=== PATIENT | male | born 1980 | race Caucasian/White ===

== ENCOUNTER 2016-11-13 12:56 | Emergency (ER) | payer MEDICAID ==
[2016-11-13] MEDS ORDERED: ONDANSETRON HCL 4 MG/2 ML VIAL ONE (13:29)
[2016-11-13 13:42] LABS: BASOPHILS 0.4 % (0.0-2.0); EOSINOPHILS 0.2 % (0.0-6.0); HEMATOCRIT 42.8 % (42.0-54.0); HEMOGLOBIN 15.2 g/dL (14.0-18.0); LYMPHOCYTES 6.1 % (20.0-40.0); LYMPHOCYTES# 0.6 X 10^3uL (0.8-3.8); MEAN CELL VOLUME 91.2 fL (80.0-100.0); MEAN CORPUS. HGB CONCENTRATION 35.5 g/dL (32.0-36.0); MEAN CORPUSCULAR HEMOGLOBIN 32.4 pg (29.0-35.0); MEAN PLATELET VOLUME 8.8 fL (7.4-10.4); MONOCYTES 5.1 % (2.0-10.0); MONOCYTES# 0.5 X 10^3uL (0.2-1.0); NEUTROPHILS 88.2 % (54.0-75.0); NEUTROPHILS# 8.1 X 10^3uL (2.6-6.7); RED BLOOD COUNT 4.69 X 10^6uL (4.20-6.10); RED CELL DISTRIBUTION WIDTH 14.1 % (11.5-14.5); WHITE BLOOD COUNT 9.2 X 10^3uL (3.9-10.7)
[2016-11-13 13:45] LABS: BLOOD UREA NITROGEN 14 mg/dL (9-20); CALCIUM 9.6 mg/dL (8.4-10.2); CHLORIDE 82 mmol/L (98-107); CREATININE 0.8 mg/dL (0.7-1.3); EST GLOMERULAR FILTRATION RATE > 60 mL/min; GLUCOSE 97 mg/dL (70-100); POTASSIUM 3.4 mmol/L (3.5-5.1); SODIUM 126 mmol/L (137-145)
[2016-11-13 13:49] LABS: PLATELET COUNT 79 X 10^3uL (130-440)
--- NOTE | 2016-11-13 15:50 | ER NURSING DOCUMENTATION ---
Nurse's Notes [facility] Name:Estrada Stevenson Age:35 yrs Sex:Male :1980 Arrival Date:11/13/2016 Time:12:56 Bed4 Private MD: Diagnosis:Viral Upper Respiratory Infection (URI);Vomiting - Dehydration Presentation: 11/13 13:00 Presenting complaint: Patient states: pt states he has had N/V cough and congestion all st week. He was seen at [facility] on and Dx with a URI. Influenza was negative at that time. pt presents today because he is unable to keep any thing down. Transition of care: Home. 13:00 Method Of Arrival: Private Vehicle st 13:22 Acuity: CAROL 3 st Triage Assessment: 13:00 General: Appears ill, uncomfortable, Behavior is cooperative. Pain: Denies pain. st Cardiovascular: tachy. Respiratory: Airway is patent Respiratory effort is even, unlabored, Respiratory pattern is regular, symmetrical, deep breathing, smells of ketones. Breath sounds are clear bilaterally. Reports cough that is productive, nasal congestion and constant nasal drip. GI: Abdomen is flat, non- distended Abd is soft and non tender X 4 quads. Reports nausea, vomiting, pt actively vomiting. Historical: - Allergies: No known drug Allergies; - Home Meds: 1. Flonase Nasal 2. Mucinex oral - PMHx: None; - PSHx: None; - Tetanus: unknown. - Ebola Screening: : Patient denies exposure to infectious person. Patient denies travel to an Ebola-affected area in the 21 days before illness onset. . - Immunization history: Flu Vaccine. - Social history: Smoking status: Patient states was never smoker of tobacco. Patient uses alcohol occasionally. uses a vaperiser., marijuana. Screenin:32 Infectious Disease Risk None. Abuse screen: Denies threats or abuse. Denies injuries st from another. pt feels safe at home. Nutritional screening: No deficits noted. Assessment: 13:39 General: nausea is better. st 14:14 General: pt states he is feeling a little better. st 15:43 General: pt tolerated fluids well.. st Vital Signs: 13:05 BP 144 / 90 (auto/); Pulse 105; Resp 24; Temp 98.3; Pulse Ox 95% ; Pain 0/10; st 13:32 Pulse Ox 82% ; st 13:38 BP 129 / 86 (auto/); Pulse 83; st 13:57 Pulse Ox 96% ; st 14:00 BP 133 / 79 (auto/); Pulse 83; Resp 18; st 14:27 Pulse Ox 98% ; st 14:30 BP 128 / 78 (auto/); Pulse 81; st 14:32 Pulse Ox 96% ; st ED Course: 13:00 Patient arrived in ED. we 13:00 Valuables Remains with patient Patient has correct armband on for positive st identification. Bed in low position. Pulse Ox - RN Monitoring Only NIBP On - RN Monitoring Only. 13:22 Fidel Villeda MD is Attending Physician. tl1 13:22 Sarah Mckee RN is Primary Nurse. st 13:[address] 13:24 Inserted peripheral IV: 20 gauge in left and blood collected. st 13:[address] 15:34 Diet: Patient given juice. st 15:37 Cheyanne Guardado MD is Referral Physician. tl1 Administered Medications: 13:25 Drug: Zofran 4 mg; Route: IVP; Infused Over: 2 mins; Site: right antecubital; st 14:33 Follow up: Response: Nausea is decreased st 13:25 Drug: NS 0.9% 1000 ml; Route: IV; Rate: bolus; Site: left antecubital; st 14:33 Follow up: IV Status: Completed infusion; IV Intake: 1000ml st 14:33 Drug: NS 0.9% 1000 ml; Route: IV; Rate: bolus; Site: left antecubital; st 15:35 Follow up: IV Status: Completed infusion; IV Intake: 1000ml st Point of Care Testing: Blood Glucose: 13:28 Blood Glucose: 115 mg/dL; st Ranges: Intake: 14:33 IV: 1000ml; Total: 1000ml. st 15:35 IV: 1000ml; Total: 2000ml. st Outcome: 15:38 Discharge ordered by . tl1 15:48 Discharged to home ambulatory. st 15:48 Condition: improved 15:48 Discharge instructions given to patient, Instructed on discharge instructions, follow up and referral plans. medication usage, Prescriptions given X 1. 15:48 IV D/Skyler 15:48 Patient left the ED. st 04/02 09:41 Discharge F/U Call: Unable to reach: no answer nf 10:15 Discharge F/U Call: Spoke with: other: Name: Delia spoke with patient by phone, stephania duke discussed lab work, follow up care with Nancy tomorrow, and the patient is feeling improved Signatures: Sarah Mckee, RN Dede Felton RN RN nf Leigh, Tom, MD MD tl1 Ruddy Villalobos
--- NOTE | 2016-11-13 15:50 | ER PHYSICIAN DOCUMENTATION ---
Physician Documentation [facility] Name:Estrada Stevenson Age:35 yrs Sex:Male :1980 Arrival Date:11/13/2016 Time:12:56 Bed4 Private MD: Fidel Cordoba Disposition: 11/14 10:39 Chart complete. tl1 Disposition: 11/13/16 15:38 Discharged to Home/Self Care. Impression: Viral Upper Respiratory Infection (URI), Vomiting - Dehydration. - Condition is Good. - Discharge Instructions: VOMITING (6y-Adult), VIRAL URI Adult - URI, Viral, No Abx (Adult). - Prescriptions for Zofran 4 mg Oral Tablet - take 1-2 tablet by ORAL route every 4-6 hours As needed; 10 tablet. - Medical Reconciliation form form. - Follow up: Cheyanne Guardado MD; When: 4- 6 days; Reason: Recheck today's complaints, Continuance of care. - Problem is new. - Symptoms have improved. HPI: 11/13 15:37 This 35 yrs old Male presents to ER via Private Vehicle with complaints of tl1 Cough, Nausea/Vomiting. 15:40 He has a 1 wk h/o URI symptoms. 2 days ago he was seen at [facility] where a swab was tl1 negative for influenza. Since then his cough and ST persist, along with malaise and poor po intake. For the last 2 days he has vomited 6-8 times a day (no blood), but has not had diarrhea or abdominal pain. No chest pain or dyspnea. No hemoptysis. No recent travel. His biggest complaint is persistent nausea and vomiting.. Historical: - Allergies: No known drug Allergies; - Home Meds: 1. Flonase Nasal 2. Mucinex oral - PMHx: None; - PSHx: None; - Tetanus: unknown. - Ebola Screening: : Patient denies exposure to infectious person. Patient denies travel to an Ebola-affected area in the 21 days before illness onset. . - Immunization history: Flu Vaccine. - Social history: Smoking status: Patient states was never smoker of tobacco. Patient uses alcohol occasionally. uses a vaperiser., marijuana. ROS: 15:40 ENT: Positive for rhinorrhea, sinus congestion, Negative for sinus pain, difficulty tl1 swallowing, hoarseness. 15:40 Respiratory: Positive for cough, Negative for orthopnea, shortness of breath, wheezing. 15:40 Abdomen/GI: Positive for nausea, vomiting, Negative for abdominal pain, diarrhea, constipation. 15:40 Skin: Negative for rash. 15:40 All other systems are negative. Exam: 15:40 Head/Face: Normocephalic, atraumatic. tl1 ENT: Nares patent. No nasal discharge, no septal abnormalities noted. Tympanic membranes are normal and external auditory canals are clear. Oropharynx with no redness, swelling, or masses, exudates, or evidence of obstruction, uvula midline. Mucous membranes moist. 15:40 Neck: Trachea midline, no thyromegaly or masses palpated, and no cervical tl1 lymphadenopathy. Supple, full range of motion without nuchal rigidity, or vertebral point tenderness. No Meningismus. 15:40 Constitutional: The patient appears alert, awake, uncomfortable. 15:40 Cardiovascular: Rate: normal, Rhythm: regular, Heart sounds: normal. 15:40 Respiratory: the patient does not display signs of respiratory distress, Respirations: normal, Breath sounds: are normal. 15:40 Abdomen/GI: Palpation: soft, mild abdominal tenderness, in the right lower quadrant and left lower quadrant. 15:40 Neuro: Exam negative for acute changes, Orientation: is normal. Vital Signs: 13:05 BP 144 / 90 (auto/); Pulse 105; Resp 24; Temp 98.3; Pulse Ox 95% ; Pain 0/10; st 13:32 Pulse Ox 82% ; st 13:38 BP 129 / 86 (auto/); Pulse 83; st 13:57 Pulse Ox 96% ; st 14:00 BP 133 / 79 (auto/); Pulse 83; Resp 18; st 14:27 Pulse Ox 98% ; st 14:30 BP 128 / 78 (auto/); Pulse 81; st 14:32 Pulse Ox 96% ; st MDM: 13:21 Patient medically screened. tl1 14:00 Differential Diagnosis: Bronchitis Pharyngitis Viral Syndrome Other dehydration. Data tl1 reviewed: vital signs, nurses notes, and as a result, I will discharge patient, administer IV fluids, NS bolus. Counseling: I had a detailed discussion with the patient and/or guardian regarding: the historical points, exam findings, and any diagnostic results supporting the discharge/admit diagnosis, the need for outpatient follow up, to return to the emergency department if symptoms worsen or persist or if there are any questions or concerns that arise at home. Response to treatment: the patient's symptoms have markedly improved after treatment, patient is well hydrated. and as a result, I will discharge patient. 11/14 10:24 Special discussion: I just spoke with Mr Stevenson, to let him know that I was unaware of tl1 his lab results yesterday when he went home. He is feeling better today; well enough to go into work and the nausea is much less with the zofran, and the vomiting has stopped. I let him know that I think his labs were most consistent with starvation ketoacidosis and that this should resolve with normal eating. His low platelet count is probably related to a viral infection. I also asked him to make sure he follows up with Dr Guardado within the next 2 days, and spoke with Dr Guardado as well, to make sure that he can be seen by someone in the clinic and get his labs rechecked.. 11/13 13:47 Order name: BASIC METABOLIC PANEL; Complete Time: 09:53 EDMS 11/14 09:35 Interpretation: SODIUM 126; POTASSIUM 3.4; CHLORIDE 82; CARBON DIOXIDE 15; GLUCOSE 97; tl1 BLOOD UREA NITROGEN 14; CREATININE 0.8. 11/13 13:50 Order name: CBC AUTO DIF, MDIF/RMOR IF IND; Complete Time: 09:53 EDMS 11/14 09:38 Interpretation: WHITE BLOOD COUNT 9.2; HEMOGLOBIN 15.2; HEMATOCRIT 42.8; PLATELET COUNT tl1 79; NEUTROPHILS 88.2; LYMPHOCYTES 6.1. 11/13 13:24 Order name: Iv Saline Lock; Complete Time: 13:25 st Dispensed Medications: 11/13 13:25 Drug: Zofran 4 mg; Route: IVP; Infused Over: 2 mins; Site: right antecubital; st 14:33 Follow up: Response: Nausea is decreased st 13:25 Drug: NS 0.9% 1000 ml; Route: IV; Rate: bolus; Site: left antecubital; st 14:33 Follow up: IV Status: Completed infusion; IV Intake: 1000ml st 14:33 Drug: NS 0.9% 1000 ml; Route: IV; Rate: bolus; Site: left antecubital; st 15:35 Follow up: IV Status: Completed infusion; IV Intake: 1000ml st Point of Care Testing: Blood Glucose: 13:28 Blood Glucose: 115 mg/dL; st Ranges: Critical Glucose Levels:Adult <50 mg/dl or >400 mg/dl <40 mg/dl or >180 mg/dl Signatures: Sarah Mckee, RN RN Fidel Brown MD MD tl1
== END 2016-11-13 15:49 | disposition home or self-care (01) ==
LOC: ER 12:56
DX: J06.9 Acute upper respiratory infection, unspecified (principal); E86.0 Dehydration; R11.2 Nausea with vomiting, unspecified
CPT/HCPCS: 80048; 85025; 96361; 96374; 99284; J2405

== ENCOUNTER 2016-11-26 10:05 | Emergency (ER) | payer MEDICAID ==
[2016-11-26] MEDS ORDERED: IPRATROPIUM/ALBUTEROL 0.5/3 MG 3 ML AMPUL.NEB INHALATION ONE ×2 (11:00→11:20)
[2016-11-26] MEDS ORDERED: LORazepam 0.5 MG TABLET ONE (11:20)
--- NOTE | 2016-11-26 11:21 | RADIOLOGY REPORT ---
HISTORY: Cough and shortness of breath. COMPARISON: None. FINDINGS: 2 views of the chest obtained. There is no consolidation. There is no pleural effusion. There is no pneumothorax. The cardiomedia stinal silhouette is normal. There is no abnormality of the pulmonary vessels. There is no focal ailyn ng parenchymal nodule. No acute bony injury. IMPRESSION: 1. No acute findings. Final Electronic Signature: This report was electronically signed by Florentin Davis MD on 11/26/2016 11: 18 AM. charissa /
[2016-11-26 12:04] LABS: BASOPHIL# 0.1 X 10^3uL (0.0-0.1); BASOPHILS 1.7 % (0.0-2.0); EOSINOPHILS 0.8 % (0.0-6.0); HEMATOCRIT 42.5 % (42.0-54.0); HEMOGLOBIN 14.8 g/dL (14.0-18.0); LYMPHOCYTES 28.5 % (20.0-40.0); LYMPHOCYTES# 1.2 X 10^3uL (0.8-3.8); MEAN CELL VOLUME 93.1 fL (80.0-100.0); MEAN CORPUSCULAR HEMOGLOBIN 32.5 pg (29.0-35.0); MEAN PLATELET VOLUME 7.8 fL (7.4-10.4); MONOCYTES 9.3 % (2.0-10.0); MONOCYTES# 0.4 X 10^3uL (0.2-1.0); NEUTROPHILS 59.7 % (54.0-75.0); NEUTROPHILS# 2.5 X 10^3uL (2.6-6.7); PLATELET COUNT 115 X 10^3uL (130-440); RED BLOOD COUNT 4.56 X 10^6uL (4.20-6.10); RED CELL DISTRIBUTION WIDTH 16.8 % (11.5-14.5); WHITE BLOOD COUNT 4.2 X 10^3uL (3.9-10.7)
[2016-11-26 12:05] LABS: INFLUENZA A/B INF A & B NEGATIVE
[2016-11-26 12:13] LABS: C-REACTIVE PROTEIN < 5.0 mg/L (<10.0)
[2016-11-26 12:22] LABS: BLOOD UREA NITROGEN 7 mg/dL (9-20); CALCIUM 8.2 mg/dL (8.4-10.2); CHLORIDE 105 mmol/L (98-107); CREATININE 0.7 mg/dL (0.7-1.3); EST GLOMERULAR FILTRATION RATE > 60 mL/min; GLUCOSE 94 mg/dL (70-100); POTASSIUM 3.9 mmol/L (3.5-5.1); SODIUM 144 mmol/L (137-145)
--- NOTE | 2016-11-26 13:11 | CT REPORT ---
HISTORY: 3 weeks of weakness. COMPARISON: None. TECHNIQUE: This examination was performed using automated exposure control, adjustment of mA or kV according to patient size, and/or use of iterative reconstruction technique. Axial CT imaging from the thoracic i nlet through the upper abdomen following administration of IV contrast during peak opacification of t he pulmonary arteries, multiplanar reformatted and 3-D images are evaluated. 100cc Isovue-370 contrast. FINDINGS: Pulmonary arteries: CT angiography demonstrates no filling defect within the pulmonary arteries to monroy ggest acute pulmonary embolus. There is excellent opacification of the segmental and subsegmental pu lmonary arteries with contrast.The main pulmonary artery is normal in caliber. Lungs: The major airways are patent. There are minimal dependent airspace opacities in the lower lobe s bilaterally, most consistent with subsegmental atelectatic change. There is no evidence of interlob ular septal thickening, architectural distortion or mass. Airways: The major airways are patent. There is no evidence of bronchiectasis or endobronchial lesion . Pleura: There is no evidence of pleural effusion or pneumothorax. Mediastinum: There is no mediastinal, hilar or axillary lymphadenopathy. No significant coronary calc ification is seen. Calcified precarinal lymph nodes suggest prior granulomatous disease. The thyroid gland appears unremarkable. The heart is not enlarged. No mediastinal hematoma is seen. Abdomen: Liver is of diffusely decreased attenuation suggesting severe fatty infiltration. Scattered splenic calcifications are consistent with granulomata. The visualized abdominal viscera appear other lazar unremarkable. Bones: The bones are normally mineralized and aligned. No blastic or lytic lesions are identified. IMPRESSION: 1. No evidence of acute pulmonary embolus. 2. Fatty infiltration of the liver is a nonspecific finding, and may reflect infectious, inflammatory or toxic/metabolic insult. 3. Findings consistent with prior granulomatous disease. Final Electronic Signature: This report was electronically signed by Charan Brody MD on 11/27/19 17 1:08 PM. [email or web address] /
--- NOTE | 2016-11-26 13:24 | ER NURSING DOCUMENTATION ---
Nurse's Notes [facility] Name:Estrada Stevenson Age:35 yrs Sex:Male :1980 Arrival Date:11/26/2016 Time:10:05 Bed1 Private MD: Diagnosis:Bronchitis Acute;Bronchospasm- Acute;Dehydration Presentation: 11/26 10:09 Acuity: CAROL 3 rs 10:26 Presenting complaint: Patient states: Dx with starvation ketoacidosis [address] neil Beasley. Has cont to have nausea, and trouble eating or drinking. Dizzy with position change, no SUÁREZ. Recent cold, and hx of asthma as a child. RA pulse ox 85 to 87, denies cough or wheezing, no SOB. His DCI from Dr Beasley was to increase his eating and drinking. Transition of care: patient was not received from another setting of care. 10:26 Method Of Arrival: Private Vehicle rs 11:48 Notified ED Physician of Dr. Heard notified. 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 Denies recent seizures, and does not take medication for it any more. Questioned his friend about the memory problems and he states he did not used to be like this prior to starting to get sick 3 weeks ago. Triage Assessment: 10:35 General: Appears in no apparent distress, comfortable, unkempt, well developed, rs Behavior is cooperative, Smells of cigarettes. Pain: Denies pain. Neuro: No deficits noted. Level of Consciousness is awake, alert, Oriented to person, place, time, event. Cardiovascular: Capillary refill < 3 seconds Heart tones S1 S2 present Pulses are 3+ in left radial artery Reports fatigue, Nausea. Respiratory: Airway is patent Respiratory effort is even, unlabored, Respiratory pattern is regular, symmetrical, Breath sounds are clear bilaterally. Denies cough, shortness of breath. GI: Abdomen is flat, non- distended Bowel sounds present X 4 quads. Abd is soft and non tender Reports nausea. Derm: Skin is pink, warm & dry. Historical: - Allergies: No known drug Allergies; - Home Meds: 1. Zofran 4 mg oral tab - PMHx: Viral Upper Respiratory Infection (URI)(November 13, 2016); Vomiting - Dehydration (November 13, 2016); asthma as a child; - PSHx: cubital tunnel bilat; foot surgery as a child; - Tetanus: < 10 years. - Ebola Screening: : Patient negative for fever greater than or equal to 101.5 degrees Fahrenheit, and additional compatible Ebola Virus Disease symptoms. Patient denies exposure to infectious person. Patient denies travel to an Ebola-affected area in the 21 days before illness onset. No symptoms or risks identified at this time. . - Immunization history: Unable to Obtain. - Social history: Smoking status: Patient uses tobacco products, current every day smoker. Patient/guardian denies using alcohol, street drugs. Screenin:44 Infectious Disease Risk None. Abuse screen: Denies threats or abuse. Nutritional rs screening: Has had N/V for 3 or more days. Pneumonia Screening: Bed-Ridden/Decreased Mobility (3pts), Total Score: 3 Pts. or > (High Risk). Assessment: 10:43 See Triage Assessment done by same RN. rs 13:17 Reassessment: Patient states feeling better. Patient states symptoms have improved. rs Patient appears in no apparent distress at this time. Vital Signs: 10:17 BP 116 / 72 (auto/); rs 10:17 Pulse Ox 91% ; rs 10:30 BP 116 / 72; Pulse 103; Resp 20; Temp 98.0; Pulse Ox 86% on R/A; Pain 0/10; rs 10:37 Pulse Ox 97% ; rs 10:57 Pulse Ox 99% ; rs 11:21 BP 110 / 87 (auto/); rs 11:22 Pulse Ox 89% ; rs 12:02 Pulse Ox 94% ; rs 12:27 Pulse Ox 97% ; rs ED Course: 10:06 Patient arrived in ED. lm3 10:08 Shelly Chappell, RN is Primary Nurse. rs 10:26 Triage completed. rs 10:30 Notified ED Physician of patient's arrival and chief complaint. Dr. Heard notified. Arm rs band placed on Bed in low position Call Light in Reach HOB Elevated Side rails up x1. 10:45 Maurice Heard MD is Attending Physician. cd 10:55 Pulse Ox - RN Monitoring Only. Door closed. Noise minimized. rs 10:58 Patient moved to radiology. pm1 11:09 Patient moved back from radiology. pm1 11:39 Inserted peripheral IV: 20 gauge in right Wrist and blood collected. rs 12:[address] mr 12:[address]. mr 13:09 Nadia Beasley DO is Referral Physician. cd Administered Medications: Completed: NS 0.9% 1000 ml IV at bolus once 10:50 Drug: DuoNeb (Albuterol 2.5 mg, Atrovent 0.5 mg); 3 ml; Route: Nebulizer; Infused Over: rs 8 mins; 13:18 Follow up: Response: No adverse reaction rs 11:20 Drug: Ativan 0.5 mg; Route: PO; rs 13:19 Follow up: Response: No adverse reaction; Anxiety decreased rs 11:20 Drug: DuoNeb (Albuterol 2.5 mg, Atrovent 0.5 mg); 3 ml; Route: Nebulizer; Infused Over: rs 8 mins; 13:20 Follow up: Response: No adverse reaction; Marked relief of symptoms rs 11:36 Drug: NS 0.9% 1000 ml; Volume: 1000 ml; Route: IV; Rate: bolus; Site: left wrist; rs Delivery: [place] [employer]; 12:40 Follow up: IV Status: Completed infusion rs 13:18 Follow up: IV Status: Completed infusion rs 13:19 Follow up: IV Intake: 1000ml rs 11:39 CANCELLED (Duplicate Order): Ativan 0.5 mg PO once rs Intake: 13:19 IV: 1000ml; Total: 1000ml. rs Outcome: 13:10 Discharge ordered by . cd 13:23 Discharged to home ambulatory. rs 13:23 Condition: improved 13:23 Discharge instructions given to patient, friend, Instructed on discharge instructions, follow up and referral plans. medication usage, Demonstrated understanding of instructions, medications, Prescriptions given X 3. 13:23 IV D/Skyler 13:23 Patient left the ED. rs [id number] 10:21 Discharge F/U Call: Unable to reach: non-working number la Signatures: Shelly Chappell RN RN rs Maurice Heard MD MD cd McBride, Philisha pm1 Valeria Osorio Michael mr Deepali Garvey lm3
--- NOTE | 2016-11-26 13:24 | ER PHYSICIAN DOCUMENTATION ---
Physician Documentation [facility] Name:Estrada Stevenson Age:35 yrs Sex:Male :1980 Arrival Date:11/26/2016 Time:10:05 Bed1 Private MD: Maurice Flowers Disposition: 11/26 13:22 Chart complete. cd Disposition: 11/26/16 13:10 Discharged to Home/Self Care. Impression: Bronchitis Acute, Bronchospasm- Acute, Dehydration. - Condition is Good. - Discharge Instructions: BRONCHITIS w/ Wheezing (Adult), BRONCHITIS, Abx Tx (Adult), DEHYDRATION (6y-Adult). - Prescriptions for Ventolin HFA 90 mcg/actuation Inhalation HFA aerosol inhaler - inhale 2 puff by INHALATION route every 6 hours; 1 Cartridge. Zofran 4 mg Oral - take 1 tablet by ORAL route every 6 hours; 6 tablet. Zithromax Z- Too 250 mg Oral Tablet - take 1 tablet by ORAL route as directed for 5 days Day 1 - take two (2) tablets one time. Day 2, 3, 4 , 5 take one (1) tablet once daily.; 6 tablet. - Medical Reconciliation form form. - Follow up: Nadia Beasley DO; When: 1 week; Reason: Recheck today's complaints, Continuance of care. - Problem is new. - Symptoms have improved. - Notes: Drink plenty of fluids. 2 - 3 quarts per day of water or Gatorade. Take Z-Pack as directed. Use Ventolin MDI 2 puffs by mouth every 6 hours for 2 - 3 days Use Zofran one tabe under tongue every 6 hours as needed for nausea. Follow up with Dr. Milton Beasley at [facility] in 10 days. HPI: 11:00 This 35 yrs old Male presents to ER via Private Vehicle with complaints of cd Cough, Malaise and Weakness. 11:00 The patient or guardian reports cough, described as moderate, with productive sputum, cd that is yellow, flu symptoms, low-grade fever, no appetite. Onset: The symptom(s)/episode began/occurred gradually, 3 week(s) ago. Severity of symptoms: At their worst the symptoms were moderate, in the emergency department the symptoms are unchanged. Associated signs and symptoms: Pertinent positives: fever, nausea, sore throat, Pertinent negatives: chest pain, ear ache, rhinorrhea, vomiting. The patient has been recently seen at the [facility] Emergency Department, a couple of weeks ago, for similar complaints Flu Test at that time was negative, dx'd with Viral URI. Historical: - Allergies: No known drug Allergies; - Home Meds: 1. Zofran 4 mg oral tab - PMHx: Viral Upper Respiratory Infection (URI)(November 13, 2016); Vomiting - Dehydration (November 13, 2016); asthma as a child; - PSHx: cubital tunnel bilat; foot surgery as a child; - Tetanus: < 10 years. - Ebola Screening: : Patient negative for fever greater than or equal to 101.5 degrees Fahrenheit, and additional compatible Ebola Virus Disease symptoms. Patient denies exposure to infectious person. Patient denies travel to an Ebola-affected area in the 21 days before illness onset. No symptoms or risks identified at this time. . - Immunization history: Unable to Obtain. - Social history: Smoking status: Patient uses tobacco products, current every day smoker. Patient/guardian denies using alcohol, street drugs. ROS: 11:01 Eyes: Negative for injury, pain, redness, discharge, blurry vision and loss of vision. cd 11:01 Constitutional: Positive for fatigue, fever, malaise, poor PO intake, Negative for body aches, chills. 11:01 ENT: Positive for sinus congestion, sore throat, Negative for ear pain, rhinorrhea, sinus pain. 11:01 Neck: Negative for pain with movement, pain at rest, stiffness. 11:01 Cardiovascular: Negative for chest pain, orthopnea, palpitations. 11:01 Respiratory: Positive for cough, with yellow sputum, Negative for hemoptysis, pleurisy, shortness of breath, wheezing. 11:01 Abdomen/GI: Positive for nausea, Negative for abdominal pain, vomiting, diarrhea. 11:01 All other systems are negative. Exam: 11:04 Eyes: Pupils equal round and reactive to light, extra-ocular motions intact. Lids and cd lashes normal. Conjunctiva and sclera are non-icteric and not injected. Cornea within normal limits. Periorbital areas with no swelling, redness, or edema. Neck: Trachea midline, no thyromegaly or masses palpated, and no cervical lymphadenopathy. Supple, full range of motion without nuchal rigidity, or vertebral point tenderness. No Meningismus. Cardiovascular: Regular rate and rhythm with a normal S1 and S2. No gallops, murmurs, or rubs. Normal PMI, no JVD. No pulse deficits. Abdomen/GI: Soft, non-tender, with normal bowel sounds. No distension or tympany. No guarding or rebound. No evidence of tenderness throughout. Back: No spinal tenderness. No costovertebral tenderness. Full range of motion. Skin: Warm, dry with normal turgor. Normal color with no rashes, no lesions, and no evidence of cellulitis. MS/ Extremity: Pulses equal, no cyanosis. Neurovascular intact. Full, normal range of motion. 11:04 Neuro: Awake and alert, GCS 15, oriented to person, place, time, and situation. cd Cranial nerves II-XII grossly intact. Motor strength 5/5 in all extremities. Sensory grossly intact. Cerebellar exam normal. Normal gait. 11:04 Constitutional: The patient appears alert, awake, non-diaphoretic, non-toxic, well developed, well nourished. 11:04 ENT: TM's: are normal, Mouth: Oral mucosa: dry, Posterior pharynx: Airway: normal, no evidence of obstruction, Tonsils: are normal in appearance, Uvula: normal. 11:04 Respiratory: the patient does not display signs of respiratory distress, Respirations: normal, no acute changes, Breath sounds: rales, are not appreciated, rhonchi, are not appreciated, wheezing, that is mild, is heard in the left posterior upper lobe and left posterior lower lobe, bronchial sounds, are not appreciated. Vital Signs: 10:17 BP 116 / 72 (auto/); rs 10:17 Pulse Ox 91% ; rs 10:30 BP 116 / 72; Pulse 103; Resp 20; Temp 98.0; Pulse Ox 86% on R/A; Pain 0/10; rs 10:37 Pulse Ox 97% ; rs 10:57 Pulse Ox 99% ; rs 11:21 BP 110 / 87 (auto/); rs 11:22 Pulse Ox 89% ; rs 12:02 Pulse Ox 94% ; rs 12:27 Pulse Ox 97% ; rs MDM: 10:20 Data interpreted: Pulse oximetry: on room air is 85 %. Interpretation: hypoxia. Plan: cd will initiate a nebulizer treatment. 10:45 Patient medically screened. 10:45 Differential Diagnosis: Bronchitis Influenza Upper Respiratory Infection Asthma cd Exacerbation Viral Syndrome Pneumonia Other PE, dehydration. 10:50 Data reviewed: vital signs, nurses notes, old medical records, and as a result, I will cd continue to observe the patient, administer IV fluids, NS bolus, and a Duoneb. 11:22 Test interpretation: by ED physician or midlevel provider: plain radiologic studies, cd CXR Negative for infiltrates. 13:21 Counseling: I had a detailed discussion with the patient and/or guardian regarding: the cd historical points, exam findings, and any diagnostic results supporting the discharge/admit diagnosis, lab results, radiology results, the need for outpatient follow up, for a recheck, with the patient's primary care provider. Response to treatment: the patient's symptoms have markedly improved after treatment, the patient's condition has returned to base line, the patient is now symptom free, patient is well hydrated. and as a result, I will discharge patient, administer antibiotics Zithromax, , Ventolin MDI and Zofran as an out-patient.. 11/26 12:05 Order name: CBC AUTO DIF, MDIF/RMOR IF IND; Complete Time: 13:04 EDIA 11/26 12:10 Interpretation: Normal. 11/26 12:06 Order name: INFLUENZA A/B; Complete Time: 13:04 EDMS 11/26 12:10 Interpretation: Normal. 11/26 12:09 Order name: DDIMER; Complete Time: 13:04 EDMS 11/26 12:10 Interpretation: Abnormal: DDIMER 889; Elevated. 11/26 12:14 Order name: C-REACTIVE PROTEIN; Complete Time: 13:04 EDMS 11/26 12:19 Interpretation: Normal. 11/26 12:23 Order name: BASIC METABOLIC PANEL; Complete Time: 13:04 EDMS 11/26 13:04 Interpretation: Normal. 11/26 11:22 Order name: CXR 2V [id number]; Complete Time: 12:09 EDMS 11/26 13:05 Interpretation: Normal: See Report. Reviewed. 11/26 13:13 Order name: CAT SCAN; CHEST ANGIO [id number]; Complete Time: 13:20 EDMS 11/26 13:19 Interpretation: Abnormal: See Report. Reviewed by me. No PE or infiltrates. + Fatty cd Liver. Calcifications in the mediastinal lymph nodes and spleen from previous granulomatous disease. Dispensed Medications: Completed: NS 0.9% 1000 ml IV at bolus once 10:50 Drug: DuoNeb (Albuterol 2.5 mg, Atrovent 0.5 mg); 3 ml; Route: Nebulizer; Infused Over: rs 8 mins; 13:18 Follow up: Response: No adverse reaction rs 11:20 Drug: Ativan 0.5 mg; Route: PO; rs 13:19 Follow up: Response: No adverse reaction; Anxiety decreased rs 11:20 Drug: DuoNeb (Albuterol 2.5 mg, Atrovent 0.5 mg); 3 ml; Route: Nebulizer; Infused Over: rs 8 mins; 13:20 Follow up: Response: No adverse reaction; Marked relief of symptoms rs 11:36 Drug: NS 0.9% 1000 ml; Volume: 1000 ml; Route: IV; Rate: bolus; Site: left wrist; rs Delivery: [place] [employer]; 12:40 Follow up: IV Status: Completed infusion rs 13:18 Follow up: IV Status: Completed infusion rs 13:19 Follow up: IV Intake: 1000ml rs 11:39 CANCELLED (Duplicate Order): Ativan 0.5 mg PO once rs Signatures: Shelly Chappell RN RN rs Maurice Heard MD MD cd
== END 2016-11-26 13:23 | disposition home or self-care (01) ==
LOC: ER 10:05
DX: J20.9 Acute bronchitis, unspecified (principal); E86.0 Dehydration; R11.0 Nausea; R50.9 Fever, unspecified; R53.83 Other fatigue; R53.81 Other malaise
CPT/HCPCS: 71020; 71275; 80048; 85025; 85379; 86140; 87449; 94640; 96360; 99285; J7620

== ENCOUNTER 2016-12-06 16:28 | Emergency (ER) | payer MEDICAID ==
[2016-12-06 16:43] LABS: BASOPHILS 0.3 % (0.0-2.0); HEMATOCRIT 42.9 % (42.0-54.0); HEMOGLOBIN 14.9 g/dL (14.0-18.0); LYMPHOCYTES# 0.4 X 10^3uL (0.8-3.8); MEAN CELL VOLUME 95.4 fL (80.0-100.0); MEAN CORPUS. HGB CONCENTRATION 34.7 g/dL (32.0-36.0); MEAN CORPUSCULAR HEMOGLOBIN 33.1 pg (29.0-35.0); MEAN PLATELET VOLUME 8.9 fL (7.4-10.4); MONOCYTES 5.7 % (2.0-10.0); MONOCYTES# 0.5 X 10^3uL (0.2-1.0); RED BLOOD COUNT 4.49 X 10^6uL (4.20-6.10); RED CELL DISTRIBUTION WIDTH 17.5 % (11.5-14.5)
[2016-12-06] MEDS ORDERED: MAGNESIUM SULFATE 1 GM/2 ML VIAL ONE (16:45)
[2016-12-06] MEDS ORDERED: THIAMINE HCL 200 MG/2 ML VIAL ONE (16:45)
[2016-12-06] MEDS ORDERED: MULTIVITAMINS 10 ML VIAL IV ONE (16:45)
[2016-12-06] MEDS ORDERED: NORMAL SALINE 1,000 ML IV ONE (16:45)
[2016-12-06] MEDS ORDERED: ONDANSETRON HCL 4 MG/2 ML VIAL ONE (16:48)
[2016-12-06 16:55] LABS: ALBUMIN 5.1 g/dL (3.5-5.0); ALKALINE PHOSPHATASE 171 U/L (38-126); ALT 228 U/L (21-72); AST 420 U/L (17-59); BILIRUBIN, DIRECT 0.6 mg/dL (0.0-0.4); BILIRUBIN, TOTAL 1.4 mg/dL (0.2-1.3); BLOOD UREA NITROGEN 5 mg/dL (9-20); CALCIUM 9.7 mg/dL (8.4-10.2); CHLORIDE 95 mmol/L (98-107); CREATININE 0.7 mg/dL (0.7-1.3); EST GLOMERULAR FILTRATION RATE > 60 mL/min; GLUCOSE 119 mg/dL (70-100); LIPASE 462 U/L (23-300); MAGNESIUM 1.5 mg/dL (1.6-2.3); POTASSIUM 3.6 mmol/L (3.5-5.1); SODIUM 135 mmol/L (137-145); TOTAL PROTEIN 8.4 g/dL (6.3-8.2)
[2016-12-06 16:56] LABS: ETHYL ALCOHOL < 10 mg/dL (<10)
[2016-12-06] MEDS ORDERED: LORazepam 2 MG/ML INJ IV ONE (17:00)
[2016-12-06 17:03] LABS: PLATELET COUNT 31 X 10^3uL (130-440)
[2016-12-06 17:10] LABS: WHITE BLOOD COUNT 8.9 X 10^3uL (3.9-10.7)
--- NOTE | 2016-12-06 17:18 | CT REPORT ---
HISTORY: Seizure. Altered mental status. Frequent falls. Thrombocytopenia. COMPARISON: None. TECHNIQUE: Axial non-contrast images obtained from skull vertex through foramen magnum. Image quality was degrad ed by patient motion artifact. The patient was not cooperative for the exam. Dose reduction technique was utilized. FINDINGS: The parenchymal volume is adequately maintained. There is no space-occupying mass or midline shift. There is no pathologic extra-axial fluid collection or intracranial hemorrhage. The ventricular conf iguration is within normal limits. There is no hydrocephalus. Periventricular white matter and deep white matter maintained. Basal ganglia appear unremarkable. No evidence of acute infarct. No skull fracture or depression. IMPRESSION: Negative noncontrast head CT. No intracranial hemorrhage. Results were communicated to TOOTIE LOYD MD at 12/06/2016 5:14 PM. Final Electronic Signature: This report was electronically signed by Arsen Michel MD on 12/06/2016 5: 16 PM. [facility] /
--- NOTE | 2016-12-06 17:59 | ER PHYSICIAN DOCUMENTATION ---
Physician Documentation [facility] Name:Estrada Stevenson Age:35 yrs Sex:Male :1980 Arrival Date:12/06/2016 Time:16:28 BedTrauma-B Private MD: Tolu Montano Disposition: 12/06/16 17:30 Transfer ordered to [facility]. Diagnosis are Pancreatitis, Acute, Seizure, Alcohol Abuse, Alcohol (ETOH) Withdrawal, Thrombocytopenia. - Reason for transfer: Higher level of care. - Accepting physician is [facility] hospitalist. - Condition is Serious. - Problem is new. - Symptoms have improved. COBRA Form completed? Yes Transfer - Mode of Transportation Ambulance HPI: 12/06 17:24 This 35 yrs old Male presents to ER via EMS with complaints of sc Nausea/Vomiting. 17:24 The patient presents to the emergency department with nausea, with vomiting, without sc any complaints of abdominal pain. Onset: The symptom(s)/episode began/occurred today. Possible causes: unknown. The symptoms are aggravated by nothing. The symptoms are alleviated by nothing. Associated signs and symptoms: Pertinent positives: anorexia, nausea, vomiting, tremulousness. Severity of symptoms: At their worst the symptoms were severe in the emergency department the symptoms are worse. Unable to obtain HPI due to just n and v then seizure on arrival and ativan with lethargy. 17:25 no alcohol x one week but drinking listerine. sc Historical: - Allergies: No known drug Allergies; - Home Meds: 1. Zofran Oral - Ebola Screening: : Patient denies exposure to infectious person. Patient denies travel to an Ebola-affected area in the 21 days before illness onset. . - Social history: Smoking status: unknown if patient ever smoked tobacco. Patient uses alcohol pt has been trying to stop drinking.. ROS: 17:26 Eyes: Negative for injury, pain, redness, and discharge. sc ENT: Negative for injury, pain, and discharge. Neck: Negative for injury, pain, and swelling. Cardiovascular: Negative for chest pain, palpitations, and edema. Respiratory: Negative for shortness of breath, cough, wheezing, and pleuritic chest pain. Back: Negative for injury and pain. MS/Extremity: Negative for injury and deformity. 17:26 Skin: Negative for injury, rash, and discoloration. sc 17:26 Constitutional: Positive for fatigue. 17:26 Abdomen/GI: Positive for nausea, vomiting. 17:26 Neuro: Positive for tremor, weakness. 17:26 Psych: Positive for alcohol dependence. Exam: Head/Face: Normocephalic, atraumatic. Eyes: Pupils equal round and reactive to light, extra-ocular motions intact. Lids and lashes normal. Conjunctiva and sclera are non-icteric and not injected. Cornea within normal limits. Periorbital areas with no swelling, redness, or edema. ENT: Nares patent. No nasal discharge, no septal abnormalities noted. Tympanic membranes are normal and external auditory canals are clear. Oropharynx with no redness, swelling, or masses, exudates, or evidence of obstruction, uvula midline. Mucous membranes moist. Neck: Trachea midline, no thyromegaly or masses palpated, and no cervical lymphadenopathy. Supple, full range of motion without nuchal rigidity, or vertebral point tenderness. No meningismus. Chest/axilla: Normal chest wall appearance and motion. Nontender with no deformity. No lesions are appreciated. Cardiovascular: Regular rate and rhythm with a normal S1 and S2. No gallops, murmurs, or rubs. Normal PMI, no JVD. No pulse deficits. Respiratory: Lungs have equal breath sounds bilaterally, clear to auscultation and percussion. No rales, rhonchi or wheezes noted. No increased work of breathing, no retractions or nasal flaring. Abdomen/GI: Soft, non-tender, with normal bowel sounds. No distension or tympany. No guarding or rebound. No evidence of tenderness throughout. 17:26 Back: No spinal tenderness. No costovertebral tenderness. Full range of motion. sc 17:26 Constitutional: The patient appears frail, lethargic. 17:26 Skin: Appearance: normal except for affected area, ecchymosis, that are moderate, and are scattered. 17:26 Neuro: Orientation: to person, Mentation: confused, Cranial nerves: CN II- XII are normal as tested, Deep tendon reflexes are 3+ (brisk) in the right patellar and left patellar. Vital Signs: 16:30 BP 146 / 81; Pulse 113; Resp 30; st 16:51 BP 130 / 80; Pulse 90; Resp 18; Pulse Ox 91% ; st 17:10 BP 141 / 74 (auto/); Pulse 87; st 17:12 Pulse Ox 90% ; st 17:20 BP 128 / 81 (auto/); Pulse 93; Temp 99.5; Weight 83.91 kg; Height 5 ft. 4 in. (162.56 st cm); Pain 0/10; 17:22 Pulse Ox 91% ; st 17:40 BP 122 / 72; Pulse 90; Pulse Ox 91% ; st 17:20 Body Mass Index 31.75 (83.91 kg, 162.56 cm) st MDM: 16:32 Patient medically screened. ri 17:27 Differential diagnosis: Nonspecific abd pain, gastritis, cholecystitis, pancreatitis. ri Data reviewed: vital signs, nurses notes, lab test result(s), radiologic studies, CT scan, and as a result, I will continue to observe the patient, prescribe sedation medication, lorazepam. Counseling: I had a detailed discussion with the patient and/or guardian regarding: the historical points, exam findings, and any diagnostic results supporting the discharge/admit diagnosis, lab results, radiology results, the need to transfer to another facility. Medication response: The patient's symptoms have improved. ED course: two brief seizures on arrival to ED with ativan given and improvement of postictal state and confusion. 17:30 Physician consultation: DR. Lindsay was called at 17:31, was contacted at 17:31, ri regarding patient's condition. 12/06 16:57 Order name: BASIC METABOLIC PANEL; Complete Time: 17:34 EDKY 12/06 16:59 Interpretation: Abnormal: SODIUM 135; CHLORIDE 95; CARBON DIOXIDE 17. ri 12/06 16:57 Order name: MAGNESIUM; Complete Time: 17:34 EDKY 12/06 16:59 Interpretation: Normal Except: MAGNESIUM 1.5. ri 12/06 16:57 Order name: HEPATIC PANEL; Complete Time: 17:34 EDKY 12/06 17:00 Interpretation: Abnormal: ALT 228; ALBUMIN 5.1; ALKALINE PHOSPHATASE 171; AST 420. ri 12/06 16:57 Order name: LIPASE; Complete Time: 17:34 EDKY 12/06 17:00 Interpretation: Abnormal: LIPASE 462. ri 12/06 16:57 Order name: ETHYL ALCOHOL; Complete Time: 17:34 [facility] 12/06 17:00 Interpretation: Normal. ri 12/06 17:12 Order name: CBC AUTO DIF, MDIF/RMOR IF IND; Complete Time: 17:34 EDMS 12/06 17:11 Order name: CAT SCAN HEAD W/O CON [id number]; Complete Time: 17:34 EDMS 12/06 17:20 Order name: CAT SCAN; HEAD W/O CON [id number]; Complete Time: 17:34 EDMS 12/06 16:34 Order name: I & O; Complete Time: 16:47 ri 12/06 16:34 Order name: NPO; Complete Time: 16:47 ri 12/06 16:34 Order name: Pulse Ox Continuous; Complete Time: 16:47 ri Dispensed Medications: 16:30 Drug: Ativan 1 mg; Route: IVP; Site: left antecubital; st 17:15 Follow up: Response: shakness is better. st 16:40 Drug: Ativan 1 mg; Route: IVP; Site: left antecubital; st 17:15 Follow up: shakeness is better. st 16:48 Drug: Banana Bag - (NS 0.9% 1000 ml, folic acid 600 mcg, Thiamine 100 mg, Multivitamin st 10 ml, Magnesium Sulfate 1 grams); Route: IV; Rate: calculated rate; Site: left antecubital; 17:57 Follow up: IV Status: Infusing continued upon transfer st Signatures: Sarah Mckee RN RN Tolu Banerjee MD MD ri
--- NOTE | 2016-12-06 17:59 | ER NURSING DOCUMENTATION ---
Nurse's Notes [facility] Name:Estrada Stevenson Age:35 yrs Sex:Male :1980 Arrival Date:12/06/2016 Time:16:28 BedTrauma-B Private MD: Diagnosis:Pancreatitis, Acute;Seizure;Alcohol Abuse;Alcohol (ETOH) Withdrawal;Thrombocytopenia Presentation: 12/06 16:29 Presenting complaint: EMS states: pt was brought in by EMS. pt sezing when they came in to the ED. EMS reports N/V and having not eaten a full meal for a week. pt is has not used ETOH for a week however pt has been using Listerine heavily. there was an emptie bottle in the room he was found. 16:29 Transition of care: Home. st 16:29 Method Of Arrival: EMS: 410 st 16:29 Care prior to arrival: Medication(s) given: Zofran 8mgIVP Phenergan 6.25. st 16:37 Acuity: CAROL 2 st Triage Assessment: 16:29 General: Appears pt actively sezing. st Historical: - Allergies: No known drug Allergies; - Home Meds: 1. Zofran Oral - Ebola Screening: : Patient denies exposure to infectious person. Patient denies travel to an Ebola-affected area in the 21 days before illness onset. . - Social history: Smoking status: unknown if patient ever smoked tobacco. Patient uses alcohol pt has been trying to stop drinking.. Screenin:05 Infectious Disease Risk None. Abuse screen:. Nutritional screening: pt told EMS that he st had not had a full meal in a week. Assessment: 16:40 General: Appears uncomfortable, Behavior is agitated, anxious, restless. Pain: st Complains of pain in left subscapular area. Neuro: Level of Consciousness is awake, confused, Oriented to person, place, Moves all extremities. Cardiovascular: Capillary refill < 3 seconds Rhythm is sinus tachycardia. GI: Abdomen is non- distended Abd is soft and non tender X 4 quads. Reports nausea, vomiting. Injury Description: Bruise sustained to left subscapular area is green, purple, pt states he fell a few days ago. 16:41 General: pt is very agitated.. st 17:05 General: pt told EMS that he had been having liver pains and had blood work done and it st was nagative.. 17:29 General: pt is resting quietly. pt is alert and oriented. . st Vital Signs: 16:30 BP 146 / 81; Pulse 113; Resp 30; st 16:51 BP 130 / 80; Pulse 90; Resp 18; Pulse Ox 91% ; st 17:10 BP 141 / 74 (auto/); Pulse 87; st 17:12 Pulse Ox 90% ; st 17:20 BP 128 / 81 (auto/); Pulse 93; Temp 99.5; Weight 83.91 kg; Height 5 ft. 4 in. (162.56 st cm); Pain 0/10; 17:22 Pulse Ox 91% ; st 17:40 BP 122 / 72; Pulse 90; Pulse Ox 91% ; st 17:20 Body Mass Index 31.75 (83.91 kg, 162.56 cm) st ED Course: 16:29 Patient arrived in ED. jl 16:29 head strength and conditioning coach on. Pulse ox on. NIBP on. st 16:32 Tolu Victor MD is Attending Physician. sc 16:36 Sarah Mckee RN is Primary Nurse. st 16:[address] 17:[address] dnn 17:15 Patient moved back from CT. dnn 17:37 Valuables Remains with patient. st Administered Medications: 16:30 Drug: Ativan 1 mg; Route: IVP; Site: left antecubital; st 17:15 Follow up: Response: shakness is better. st 16:40 Drug: Ativan 1 mg; Route: IVP; Site: left antecubital; st 17:15 Follow up: shakeness is better. st 16:48 Drug: Banana Bag - (NS 0.9% 1000 ml, folic acid 600 mcg, Thiamine 100 mg, Multivitamin st 10 ml, Magnesium Sulfate 1 grams); Route: IV; Rate: calculated rate; Site: left antecubital; 17:57 Follow up: IV Status: Infusing continued upon transfer st Intake: Outcome: 17:30 ER care complete, transfer ordered by . sc 17:36 [facility] Time: December 06, 2016 at 17:37 Patient's face sheet was faxed to accepting facility. Face Sheet included patient's name, address, age, gender, contact information and insurance information. Patient will be transported by: [facility] ground. Nurse and Physician Charting and Notes were sent to Accepting Facility. All tests and/or procedures with results, if applicable, were sent to accepting facility. 17:36 Condition: stable 17:36 Instructed on need for transfer 17:57 Report given to Konrad Tran at [facility] 17:[address] the ED[address] st Signatures: Sarah Mckee RN RN st Chew, Scott, MD MD sc Norman, David dnn Lietz, Jeff jl
== END 2016-12-06 17:58 | disposition short-term general hospital (02) ==
LOC: ER 16:28
DX: K85.90 Acute pancreatitis without necrosis or infection, unspecified (principal); R56.9 Unspecified convulsions; F10.239 Alcohol dependence with withdrawal, unspecified; D69.6 Thrombocytopenia, unspecified; R53.1 Weakness; R41.82 Altered mental status, unspecified; Z99.89 Dependence on other enabling machines and devices; Z74.3 Need for continuous supervision
CPT/HCPCS: 70450; 80048; 80076; 80320; 83690; 83735; 85025; 96365; 96375; 99285; A0425; A0427; J2060; J2405; J2550; J3475; J7030

== ENCOUNTER 2016-12-22 15:08 | Emergency (ER) | payer MEDICAID ==
[2016-12-22 15:34] LABS: BASOPHIL# 0.1 X 10^3uL (0.0-0.1); BASOPHILS 1.3 % (0.0-2.0); EOSINOPHILS 0.5 % (0.0-6.0); HEMATOCRIT 48.1 % (42.0-54.0); HEMOGLOBIN 16.8 g/dL (14.0-18.0); LYMPHOCYTES 29.1 % (20.0-40.0); LYMPHOCYTES# 1.1 X 10^3uL (0.8-3.8); MEAN CELL VOLUME 96.2 fL (80.0-100.0); MEAN CORPUS. HGB CONCENTRATION 34.9 g/dL (32.0-36.0); MEAN CORPUSCULAR HEMOGLOBIN 33.5 pg (29.0-35.0); MONOCYTES 7.6 % (2.0-10.0); MONOCYTES# 0.3 X 10^3uL (0.2-1.0); NEUTROPHILS 61.5 % (54.0-75.0); NEUTROPHILS# 2.4 X 10^3uL (2.6-6.7); PLATELET COUNT 314 X 10^3uL (130-440); RED BLOOD COUNT 5.01 X 10^6uL (4.20-6.10); WHITE BLOOD COUNT 3.9 X 10^3uL (3.9-10.7)
[2016-12-22] MEDS ORDERED: THIAMINE HCL 200 MG/2 ML VIAL ONE (15:41)
[2016-12-22] MEDS ORDERED: MAGNESIUM SULFATE 1 GM/2 ML VIAL ONE (15:41)
[2016-12-22] MEDS ORDERED: NORMAL SALINE 1,000 ML IV ONE (15:41)
[2016-12-22] MEDS ORDERED: MULTIVITAMINS 10 ML VIAL IV ONE (15:42)
[2016-12-22] MEDS ORDERED: PANTOPRAZOLE 40 MG VIAL IV ONE (15:43)
[2016-12-22 15:49] LABS: A/G RATIO 1.4; ALBUMIN 5.3 g/dL (3.5-5.0); ALKALINE PHOSPHATASE 149 U/L (38-126); ALT 140 U/L (21-72); AST 256 U/L (17-59); BILIRUBIN, TOTAL 1.1 mg/dL (0.2-1.3); BLOOD UREA NITROGEN 7 mg/dL (9-20); CALCIUM 9.5 mg/dL (8.4-10.2); CHLORIDE 96 mmol/L (98-107); CREATININE 0.7 mg/dL (0.7-1.3); EST GLOMERULAR FILTRATION RATE > 60 mL/min; GLUCOSE 92 mg/dL (70-100); LIPASE 254 U/L (23-300); POTASSIUM 4.6 mmol/L (3.5-5.1); SODIUM 147 mmol/L (137-145); TOTAL PROTEIN 9.2 g/dL (6.3-8.2)
[2016-12-22 15:50] LABS: INR 0.8
[2016-12-22 16:02] LABS: ETHYL ALCOHOL 423 mg/dL (<10)
--- NOTE | 2016-12-22 18:05 | ER NURSING DOCUMENTATION ---
Nurse's Notes [facility] Name:Estrada Stevenson Age:36 yrs Sex:Male :1980 Arrival Date:12/22/2016 Time:15:08 Bed4 Private MD: Diagnosis:Alcohol (ETOH) Intoxication, Nondependent Presentation: 12/22 15:16 Presenting complaint: Patient states: intoxicated. Pt. states he has been drinking for sc1 4 days, not eating and when coworkers checked on him, they call 911. Transition of care: patient was not received from another setting of care. Notified ED Physician of Dr. Villeda notified. Care prior to arrival: IV Fluids given by EMS NS 1000 ml. 15:16 Acuity: CAROL 3 sc1 15:16 Method Of Arrival: EMS: 410 sc1 Triage Assessment: 15:23 General: Appears in no apparent distress, well developed, well nourished, well groomed, sc1 Behavior is drowsy, listless, pleasant, Smells of alcohol. Pain: Denies pain. Historical: - Allergies: No known drug Allergies; - Home Meds: 1. Zofran Oral - PMHx: ALCOHOLISM; PANCREATITIS; HEPATITIS; Pancreatitis, Acute (December 06, 2016); Seizure (December 06, 2016); Alcohol Abuse (December 06, 2016); Alcohol (ETOH) Withdrawal(December 06, 2016); Thrombocytopenia (December 06, 2016); - Tetanus: unknown. - Ebola Screening: : Patient negative for fever greater than or equal to 101.5 degrees Fahrenheit, and additional compatible Ebola Virus Disease symptoms. Patient denies exposure to infectious person. Patient denies travel to an Ebola-affected area in the 21 days before illness onset. No symptoms or risks identified at this time. . - Immunization history: Flu Vaccine unknown. - Social history: Smoking status: unknown if patient ever smoked tobacco. Patient uses alcohol patient/guardian reports chronic longstanding heavy alcohol consumption. patient/guardian reports recent binge of alcohol consumption. Patient/guardian denies using street drugs, IV drugs, marijuana. Screenin:26 Infectious Disease Risk None. Abuse screen: Denies threats or abuse. Nutritional sc1 screening: No deficits noted. Suicide Risk Assessment:. Vital Signs: 15:25 BP 124 / 85; Pulse 86; Resp 18; Temp 98.7; Pulse Ox 95% on R/A; sc1 15:43 BP 117 / 77 (auto/); tg 15:44 Pulse Ox 94% ; tg 16:30 BP 108 / 70 (auto/); sc1 16:44 Pulse Ox 96% ; sc1 17:30 BP 112 / 70 (auto/); sc1 17:34 Pulse Ox 95% ; sc1 ED Course: 15:10 Patient arrived in ED. yoandy 15:15 Katarina Katz, RN is Primary Nurse. fl1 15:20 Triage completed. sc1 15:20 Fidel Villeda MD is Attending Physician. tl1 15:26 Notified ED Physician of patient's arrival and chief complaint. Dr. Villeda notified. Arm sc1 band placed on Bed in low position Call Light in Reach Gowned HOB Elevated Side rails up x2. Labs ordered per protocol. Drawn by EMS. 18:02 Valuables Remains with patient. sc1 Administered Medications: 15:43 Drug: Pantoprazole 80 mg; Route: IVPB; Site: left antecubital; Delivery: [place] [facility];fl1 15:43 Drug: Banana Bag - (NS 0.9% 1000 ml, folic acid 600 mcg, Thiamine 100 mg, Multivitamin sc1 10 ml, Magnesium Sulfate 1 grams); Route: IV; Rate: calculated rate; Site: left antecubital; Delivery: [place] [facility]; 17:12 Follow up: IV Status: Completed infusion; IV Intake: 1000ml [facility] [place] 17:12 Drug: NS 0.9% 1000 ml; Route: IV; Rate: bolus; Site: left antecubital; Delivery: sc1 [place] [facility]; 18:02 Follow up: IV Status: Infusion discontinued; IV Intake: 600ml [facility] Intake: 17:12 IV: 1000ml; Total: 1000ml. fl1 18:02 IV: 600ml; Total: 1600ml. [facility] Outcome: 17:13 Discharge ordered by . tl1 18:01 Discharged to home ambulatory. fl1 18:01 Condition: stable 18:01 Discharge instructions given to patient, Instructed on discharge instructions, follow up and referral plans. Demonstrated understanding of instructions. 18:04 Patient left the ED. fl1 05 08:28 Discharge F/U Call: Unable to reach: no answer lp Signatures: Ryan Haji RN RN Katarina Katz RN RN [facility] Marni Ga RN RN lp Sara Doss, Reg Reg Fidel Ag MD MD tl1
--- NOTE | 2016-12-22 18:05 | ER PHYSICIAN DOCUMENTATION ---
Physician Documentation [facility] Name:Estrada Stevenson Age:36 yrs Sex:Male :1980 Arrival Date:12/22/2016 Time:15:08 Bed4 Private MD: Fidel Cordoba Disposition: 12/22 18:42 Chart complete. tl1 Disposition: 12/22/16 17:13 Discharged to Home/Self Care. Impression: Alcohol (ETOH) Intoxication, Nondependent. - Condition is Fair. - Discharge Instructions: Abuse, Alcohol - ALCOHOL INTOXICATION. - Medical Reconciliation form form. - Follow up: Private Physician; When: 2 - 3 days; Reason: Recheck today's complaints, Continuance of care. - Problem is new. - Symptoms have improved. - Notes: You need to get into alcohol detox/rehab, again, if you cannot stop drinking or if you do stop and start to have alcohol withdrawal. Your liver is again inflamed and you may have alcoholic hepatitis. Make sure to follow up with a local primary care provider as soon as possible; within a week. HPI: 18:22 This 36 yrs old Male presents to ER via EMS with complaints of ETOH Abuse, tl1 Nausea. 18:22 He says he has been sober since his 4th detox/rehab that ended in July. He started tl1 drinking heavily again 4 days ago. He had not shown up at work at the [employer],and concerned co-workers sent security to his apartment at the , and they found him quite intoxicated. He was weak, with slurred speech and they called an ambulance. FSBS was 109, an IV was established and he was treated with Zofran for nausea, and transported here. On arrival he complained of feeling intoxicated, but he had no other specific complaints. He says he started drinking heavy again after he broke up with his girlfriend. He denied suicidal ideation or any ingestion. He says he vomited yesterday and noted a small amount of blood. 2 days ago he noted a small amount of BRB on the TP. Denied h/o varices.. Historical: - Allergies: No known drug Allergies; - Home Meds: 1. Zofran Oral - PMHx: ALCOHOLISM; PANCREATITIS; HEPATITIS; Pancreatitis, Acute (December 06, 2016); Seizure (December 06, 2016); Alcohol Abuse (December 06, 2016); Alcohol (ETOH) Withdrawal(December 06, 2016); Thrombocytopenia (December 06, 2016); - Tetanus: unknown. - Ebola Screening: : Patient negative for fever greater than or equal to 101.5 degrees Fahrenheit, and additional compatible Ebola Virus Disease symptoms. Patient denies exposure to infectious person. Patient denies travel to an Ebola-affected area in the 21 days before illness onset. No symptoms or risks identified at this time. . - Immunization history: Flu Vaccine unknown. - Social history: Smoking status: unknown if patient ever smoked tobacco. Patient uses alcohol patient/guardian reports chronic longstanding heavy alcohol consumption. patient/guardian reports recent binge of alcohol consumption. Patient/guardian denies using street drugs, IV drugs, marijuana. ROS: 15:25 Abdomen/GI: Positive for nausea, vomiting, hematemesis, rectal bleeding, Negative for tl1 anorexia, dysphagia, black/tarry stool, rectal pain. 15:25 All other systems are negative. Exam: 15:25 Head/Face: Normocephalic, atraumatic. tl1 Eyes: Pupils equal round and reactive to light, extra-ocular motions intact. Lids and lashes normal. Conjunctiva and sclera are non-icteric and not injected. Cornea within normal limits. Periorbital areas with no swelling, redness, or edema. ENT: Nares patent. No nasal discharge, no septal abnormalities noted. Tympanic membranes are normal and external auditory canals are clear. Oropharynx with no redness, swelling, or masses, exudates, or evidence of obstruction, uvula midline. Mucous membranes moist. 15:25 Neck: Trachea midline, no thyromegaly or masses palpated, and no cervical tl1 lymphadenopathy. Supple, full range of motion without nuchal rigidity, or vertebral point tenderness. No Meningismus. 15:25 Constitutional: The patient appears in no acute distress, alert, comfortable, well developed, well groomed, well nourished, smells of alcohol. 15:25 Cardiovascular: Rate: normal, Rhythm: regular, Heart sounds: normal, Edema: is not appreciated, JVD: is not appreciated. 15:25 Respiratory: the patient does not display signs of respiratory distress, Respirations: normal, Breath sounds: are normal. 15:25 Abdomen/GI: Inspection: abdomen appears normal, Palpation: soft, mild abdominal tenderness, in the epigastric area, Liver: tenderness, that is mild. 15:25 Musculoskeletal/extremity: Exam is negative for acute changes. 15:25 Skin: Exam negative for acute changes, rash. 15:25 Neuro: Orientation: is normal, Mentation: is normal, Memory: is normal, appropriate for stated age, Cranial nerves: grossly normal, Motor: moves all fours, Gait: is steady, at a normal pace, without difficulty, appropriate for age. 15:25 Psych: Behavior/mood is pleasant, cooperative, Affect is calm, Oriented to person, place, time, Patient has no thoughts/intents to harm self or others. Judgement / Insight is normal. Delusions/hallucinations are not present. Vital Signs: 15:25 BP 124 / 85; Pulse 86; Resp 18; Temp 98.7; Pulse Ox 95% on R/A; sc1 15:43 BP 117 / 77 (auto/); tg 15:44 Pulse Ox 94% ; tg 16:30 BP 108 / 70 (auto/); sc1 16:44 Pulse Ox 96% ; sc1 17:30 BP 112 / 70 (auto/); sc1 17:34 Pulse Ox 95% ; sc1 MDM: 15:20 Patient medically screened. tl1 17:30 Differential diagnosis: gastritis, alcohol intoxication, alcoholic vs other hepatitis. tl1 Data reviewed: vital signs, nurses notes, lab test result(s), CBC, electrolytes, hepatic panel, and as a result, I will discharge patient. Counseling: I had a detailed discussion with the patient and/or guardian regarding: the historical points, exam findings, and any diagnostic results supporting the discharge/admit diagnosis, lab results, the need for outpatient follow up, to return to the emergency department if symptoms worsen or persist or if there are any questions or concerns that arise at home. Medication response: The patient's symptoms have improved. Response to treatment: the patient's symptoms have markedly improved after treatment, and as a result, I will discharge patient. ED course: VSS. He felt much better after IV hydration and a banana bag, zofran, and was eager to go home, and was given several referrals to local detox centers. He seemed motivated to pursue sobriety again. He should try to decrease and / or stop the EtOH unless he develops withdrawal symptoms, of which he is very familiar and aware.. 12/22 15:44 Order name: CBC AUTO DIF, MDIF/RMOR IF IND; Complete Time: 17:12 EDMS 12/22 17:10 Interpretation: WHITE BLOOD COUNT 3.9; HEMOGLOBIN 16.8; HEMATOCRIT 48.1; PLATELET COUNT [facility] 314. 12/22 15:51 Order name: PROTIME/INR; Complete Time: 17:12 EDMS 12/22 17:10 Interpretation: Normal: PROTIME 11.7. [facility] 12/22 16:03 Order name: COMPREHENSIVE METABOLIC PANEL; Complete Time: 17:12 EDMS 12/22 17:11 Interpretation: SODIUM 147; POTASSIUM 4.6; CHLORIDE 96; CARBON DIOXIDE 25; GLUCOSE 92; tl1 BLOOD UREA NITROGEN 7; CREATININE 0.7; ALT 140; ALBUMIN 5.3; ALKALINE PHOSPHATASE 149; AST 256; TOTAL PROTEIN 9.2. 12/22 16:04 Order name: MAGNESIUM; Complete Time: 17:12 EDMS 12/22 17:12 Interpretation: Normal: MAGNESIUM 2.0. [facility] 12/22 16:04 Order name: LIPASE; Complete Time: 17:12 EDMS 12/22 17:12 Interpretation: Normal: LIPASE 254. [facility] 12/22 16:04 Order name: ETHYL ALCOHOL; Complete Time: 17:12 EDMS 12/22 17:12 Interpretation: Abnormal: ETHYL ALCOHOL 423. tl1 Dispensed Medications: 15:43 Drug: Pantoprazole 80 mg; Route: IVPB; Site: left antecubital; Delivery: [place] [facility] 15:43 Drug: Banana Bag - (NS 0.9% 1000 ml, folic acid 600 mcg, Thiamine 100 mg, Multivitamin sc1 10 ml, Magnesium Sulfate 1 grams); Route: IV; Rate: calculated rate; Site: left antecubital; Delivery: [place] [facility]; 17:12 Follow up: IV Status: Completed infusion; IV Intake: 1000ml sc1 17:12 Drug: NS 0.9% 1000 ml; Route: IV; Rate: bolus; Site: left antecubital; Delivery: sc1 [place] [facility]; 18:02 Follow up: IV Status: Infusion discontinued; IV Intake: 600ml sc1 Signatures: Katarina Katz RN RN [facility] Fidel Villeda MD MD [facility]
== END 2016-12-22 18:05 | disposition home or self-care (01) ==
LOC: ER 15:08
DX: F10.129 Alcohol abuse with intoxication, unspecified (principal); K92.0 Hematemesis; R11.0 Nausea; K62.5 Hemorrhage of anus and rectum; R10.13 Epigastric pain; K76.89 Other specified diseases of liver; Z99.89 Dependence on other enabling machines and devices; Z74.3 Need for continuous supervision
CPT/HCPCS: 80053; 80320; 83690; 83735; 85025; 85610; 96361; 96365; 96375; 99283; A0425; A0429; J3475; J7030

== ENCOUNTER 2016-12-23 18:58 | Emergency (ER) | payer MEDICAID ==
[2016-12-23 19:27] LABS: BASOPHILS 1.5 % (0.0-2.0); EOSINOPHILS 0.5 % (0.0-6.0); HEMATOCRIT 41.2 % (42.0-54.0); HEMOGLOBIN 14.3 g/dL (14.0-18.0); LYMPHOCYTES 36.2 % (20.0-40.0); LYMPHOCYTES# 0.9 X 10^3uL (0.8-3.8); MEAN CORPUS. HGB CONCENTRATION 34.7 g/dL (32.0-36.0); MEAN CORPUSCULAR HEMOGLOBIN 33.7 pg (29.0-35.0); MEAN PLATELET VOLUME 7.1 fL (7.4-10.4); MONOCYTES 10.4 % (2.0-10.0); MONOCYTES# 0.3 X 10^3uL (0.2-1.0); NEUTROPHILS 51.4 % (54.0-75.0); NEUTROPHILS# 1.2 X 10^3uL (2.6-6.7); PLATELET COUNT 183 X 10^3uL (130-440); RED BLOOD COUNT 4.25 X 10^6uL (4.20-6.10); RED CELL DISTRIBUTION WIDTH 17.5 % (11.5-14.5)
[2016-12-23 19:31] LABS: WHITE BLOOD COUNT 2.4 X 10^3uL (3.9-10.7)
[2016-12-23 19:37] LABS: ACETAMINOPHEN < 10.0 ug/mL (10.0-30.0); ALBUMIN 4.3 g/dL (3.5-5.0); ALKALINE PHOSPHATASE 101 U/L (38-126); ALT 120 U/L (21-72); AST 218 U/L (17-59); BILIRUBIN, DIRECT 0.2 mg/dL (0.0-0.4); BILIRUBIN, TOTAL 0.6 mg/dL (0.2-1.3); BLOOD UREA NITROGEN 6 mg/dL (9-20); CALCIUM 8.7 mg/dL (8.4-10.2); CHLORIDE 101 mmol/L (98-107); CREATININE 0.7 mg/dL (0.7-1.3); EST GLOMERULAR FILTRATION RATE > 60 mL/min; GLUCOSE 126 mg/dL (70-100); LIPASE 337 U/L (23-300); POTASSIUM 4.3 mmol/L (3.5-5.1); SALICYLATE < 1.0 mg/dL (<20.0); SODIUM 145 mmol/L (137-145); TOTAL PROTEIN 7.1 g/dL (6.3-8.2)
[2016-12-23 19:48] LABS: ETHYL ALCOHOL 504 mg/dL (<10)
[2016-12-23 20:07] LABS: THYROID STIMULATING HORMONE 0.54 uIU/mL (0.47-4.68)
[2016-12-23] MEDS ORDERED: [UNRECOGNIZED DRUG - MIXTURE] IV ONE (20:32)
[2016-12-23] MEDS ORDERED: ONDANSETRON HCL 4 MG/2 ML VIAL ONE (20:32)
[2016-12-23] MEDS ORDERED: FAMOTIDINE IN SALINE, ISO-OSM 50 ML IV ONE (20:33)
[2016-12-23 21:39] LABS: URINE MUCUS NONE SEEN (Up to 25%); URINE RBC NONE SEEN (0-5/hpf); URINE SQUAMOUS EPITHELIAL CELL NONE SEEN (<= 15/hpf); URINE WBC NONE SEEN (0-4/hpf)
[2016-12-23 21:50] LABS: URINE APPEARANCE CLEAR; URINE BILIRUBIN NEGATIVE (NEGATIVE); URINE BLOOD NEGATIVE (NEGATIVE); URINE COLOR YELLOW; URINE GLUCOSE NORMAL (NEGATIVE); URINE KETONE NEGATIVE (NEGATIVE); URINE LEUKOCYTE ESTERASE NEGATIVE (NEGATIVE); URINE NITRITE NEGATIVE (NEGATIVE); URINE PH 6.5 (5-7); URINE PROTEIN NEGATIVE (NEG - TRACE); URINE UROBILINOGEN 0.2mg/dL (Normal) (NEG-1mg/dL)
[2016-12-23 21:53] LABS: URINE AMORPHOUS SEDIMENT NONE SEEN (Up to 25%); URINE BACTERIA NONE SEEN (<10/hpf)
[2016-12-24] MEDS ORDERED: LORazepam 2 MG/ML INJ ONE ×2 (07:24→13:09)
--- NOTE | 2016-12-24 09:50 | ER NURSING DOCUMENTATION ---
Nurse's Notes [facility] Name:Estrada Stevenson Age:36 yrs Sex:Male :1980 Arrival Date:12/23/2016 Time:18:58 BedTrauma-A Private MD: Diagnosis:Alcohol Intoxication, Dependence Acute;Alcohol (ETOH) Withdrawal Presentation: 12/23 19:04 Presenting complaint: EMS states: EMS report pt is repeatedly picked up from the [place] [id number] where he lives and has recently worked with chronic alcoholism. Pt denies wanting to hurt himself and states he has never wanted to do that. EMS reports previous SI for Pt. Pt denies pain. Transition of care: Home. Care prior to arrival: IV initiated. gauge and site 18G RAC Oxygen administered. IV Fluids given by EMS NS 1000 ml. 19:04 Acuity: CAROL 2 mk2 19:04 Method Of Arrival: EMS: 410 mk2 Triage Assessment: 19:07 General: Appears in no apparent distress, Behavior is cooperative. Pain: Denies pain. mk2 Neuro: Level of Consciousness is awake, alert, Oriented to person, place, time, event, Pupils are PERRLA. Cardiovascular: Pulses are regular and strong peripherally. Respiratory: Breath sounds are clear bilaterally. Pt RA sats are 88. Lungs cta. Derm: No deficits noted. Historical: - Allergies: No known drug Allergies; - Home Meds: 1. None - PMHx: None; - PSHx: None; - Tetanus: < 10 years. - Ebola Screening: : Patient negative for fever greater than or equal to 101.5 degrees Fahrenheit, and additional compatible Ebola Virus Disease symptoms. Patient denies exposure to infectious person. Patient denies travel to an Ebola-affected area in the 21 days before illness onset. No symptoms or risks identified at this time. . - Immunization history: Flu Vaccine < 1 year. - Social history: Smoking status: Patient uses tobacco products, current every day smoker. Patient uses alcohol patient/guardian reports chronic longstanding heavy alcohol consumption. patient/guardian reports recent binge of alcohol consumption. Patient/guardian denies using street drugs. Screenin:09 Infectious Disease Risk None. Abuse screen: Denies threats or abuse. Nutritional mk2 screening: No deficits noted. Suicide Risk Assessment: Suicidal Thinking Present - No ( 0 points). Assessment: 19:09 See Triage Assessment done by same RN. 2 Vital Signs: 19:05 BP 116 / 81 (auto/); mk2 19:08 BP 116 / 81; Pulse 91; Resp 18; Temp 98.3; Pulse Ox 89% on R/A; Weight 69.4 kg; Height 2 5 ft. 10 in. (177.80 cm); Pain 0/10; 19:27 Pulse 87 MON; Resp 13; Pulse Ox 99% ; mk2 20:06 BP 105 / 68 (auto/); mk2 20:07 Pulse 97 MON; Resp 14; Pulse Ox 98% ; mk2 20:57 Pulse 92 MON; Resp 15; Pulse Ox 98% ; 2 21:00 BP 98 / 61 (auto/); mk2 21:30 BP 103 / 70 (auto/); mk2 21:32 Pulse 82 MON; Resp 15; Pulse Ox 98% ; 2 22:00 BP 102 / 63 (auto/); mk2 22:02 Pulse 86 MON; Resp 13; Pulse Ox 98% ; mk2 23:00 BP 101 / 63 (auto/); mk2 23:02 Pulse 78 MON; Resp 14; Pulse Ox 98% ; mk2 23:27 Pulse 80 MON; Resp 12; Pulse Ox 99% ; 2 0512 00:30 BP 90 / 54 (auto/); mk2 00:52 Pulse 81 MON; Resp 13; Pulse Ox 94% ; mk2 01:00 BP 102 / 56 (auto/); mk2 02:30 BP 112 / 69 (auto/); 2 02:32 Pulse 90 MON; Resp 15; Pulse Ox 97% ; mk2 03:00 BP 101 / 61 (auto/); mk2 03:02 Pulse 88 MON; Resp 12; Pulse Ox 92% ; mk2 04:30 BP 118 / 70 (auto/); mk2 04:32 Pulse 70 MON; Resp 12; Pulse Ox 99% ; mk2 05:00 BP 116 / 80 (auto/); 2 05:02 Pulse 96 MON; Resp 19; Pulse Ox 95% ; mk2 06:27 Pulse 91 MON; Resp 18; Pulse Ox 98% ; mk2 06:31 BP 110 / 56 (auto/); mk2 07:28 BP 114 / 70; Pulse 65; Resp 18; Pulse Ox 98% ; Pain 0/10; rs 05/11 19:08 Body Mass Index 21.95 (69.40 kg, 177.80 cm) 2 ED Course: 12/23 18:59 Patient arrived in ED. ma1 19:04 Ashley Mike, RN is Primary Nurse. mk2 19:06 Triage completed. mk2 19:09 Arm band placed on Bed in low position Call Light in Reach Gowned HOB Elevated Side mk2 rails up x2. 19:[address] Villeda notified. mk2 19:20 Valuables shoes, shirt, pants and wallet placed in a bag with pt name and placed in mk2 view of primary R.N. Pt is in trauma A and also visualized from the nurses station. Pt is undressed. Call light in reach. . clinical research monitor on. Pulse ox on. NIBP on. Verbal reassurance given. Warm blanket given. 19:23 Oxygen Oxygen administration via nasal cannula @ 2L/min. mk2 19:[address] Villeda notified. Notified WBC 2.4. mk2 19:31 Notified [facility] called critical WBC. Repeated back. mk2 19:39 Fidel Villeda MD is Attending Physician. tl1 20:07 ED physician of Notified Alcohol level of 504. mk2 20:12 Resting quietly. Pt is sleeping but is alert when spoken to and answers questions mk2 appropriately. Pt handles oral secretions without increased effort. Pt is protecting his own airway without effort currently. 21:20 Urine collected. Voided. mk2 22:21 Lights dimmed. bed sheets and linens changed after pt urinated on himself. Pt states he mk2 doesn't need a diaper but one placed. 23:28 Appears to be sleeping. mk2 23:29 Warm blanket given. mk2 05/12 00:10 Pt given po fluids 4oz. Pt alert and oriented. mk2 03:20 No apparent distress. Pt now awake and requests a medication for sleep. aware. mk2 05:19 Appears to be sleeping. mk2 06:33 Labs drawn. By Lab Staff. mk2 06:48 Pt monitoring is suspended temporarily. Pt is visualized from the nurses station. Pt is mk2 calling primary RN q5 minutes complaining about various things and wanting to leave. is aware and coming to discuss plan with patient. 07:33 Patient Filled water per pt request. Urinal emptied. Cords untangled. Will transfer at rs 8 am per amb request. Labs faxed to [facility]. Administered Medications: 12/23 19:43 Drug: NS 0.9% 1000 ml; Route: IV; Rate: 250 ml/hr; Site: right antecubital; mk2 20:26 Drug: Pepcid 20 mg; Route: IVPB; Site: right antecubital; mk2 21:26 Follow up: IV Status: Completed infusion; IV Intake: 100ml mk2 20:26 Drug: Zofran 4 mg; Route: IVP; Infused Over: 2 mins; Site: right antecubital; mk2 21:26 Follow up: Response: No adverse reaction 2 12/24 06:09 CANCELLED (Other Intervention Used): Ativan 1 mg IVP once mk2 07:01 CANCELLED (Physician Discretion): Ativan 1 mg IVP once mk2 07:02 CANCELLED (Duplicate Order): Ativan 2 mg IVP once mk2 07:20 Drug: Ativan 2 mg; Route: IVP; Rate: 0.5 mg/min; Infused Over: 4 mins; Site: right rs antecubital; 07:35 Follow up: Response: No adverse reaction; Anxiety decreased rs Intake: 12/23 19:42 IV: 1000ml (NS); Total: 1000ml. mk2 21:26 IV: 100ml; Total: 1100ml. 2 12/24 00:11 PO: 4ml; Total: 1104ml. mk2 02:45 PO: 4ml; Total: 1108ml. mk2 06:34 PO: 300ml; Total: 1408ml. mk2 07:36 PO: 100ml; Total: 1508ml. rs Output: 02:45 Urine: 800ml; Total: 800ml. mk2 06:34 Urine: 400ml; Total: 1200ml. mk2 07:36 Urine: 400ml (Voided); Total: 1600ml. rs Outcome: 07:00 ER care complete, transfer ordered by . tl1 08:35 Report given to Gerardo Torres RN rs 09:49 Patient left the ED. lpr Signatures: Shelly Chappell RN RN rs Valorie Villafana RN RN lpr Ashley Mike RN RN [facility] Fidel Villeda MD MD tl1 Pablo, Gilda ma1
--- NOTE | 2016-12-24 09:51 | ER PHYSICIAN DOCUMENTATION ---
Physician Documentation [facility] Name:Estrada Stevenson Age:36 yrs Sex:Male :1980 Arrival Date:12/23/2016 Time:18:58 BedTrauma-A Private MD: Fidel Cordoba Disposition: 12/24 15:08 Chart complete. tl1 Disposition: 12/24/16 07:00 Transfer ordered to Other Acute Care Facility. Diagnosis are Alcohol Intoxication, Dependence Acute, Alcohol (ETOH) Withdrawal. - Reason for transfer: Specialty. - Accepting physician is Rebeka, the supervisor residential at [facility]. - Condition is Good. - Problem is an ongoing problem. - Symptoms have improved. COBRA Form completed? Yes Transfer - Mode of Transportation Ambulance - Notes: YOUR WHITE BLOOD CELL COUNT IS LOW ( 2.4), BUT WAS NORMAL 2 DAYS AGO. IT IS PROBABLY LOW BECAUSE OF ALCOHOL TOXICITY TO YOUR BONE MARROW. YOU SHOULD GET THIS RECHECKED WITHIN THE NEXT WEEK. GO TO THE [facility]OX [facility] NOW, WITH THE AMBULANCE TO GET DETOX AND ALCOHOL REHAB. CALL YOUR EMPLOYER WHEN YOU GET DOWN THERE- THEY WANT TO CHECK ON YOU. HPI: 12/23 19:39 This 36 yrs old Male presents to ER via EMS with complaints of ETOH Abuse. tl1 19:39 The patient presents to the emergency department with a history of substance abuse, tl1 Type: whisky, the amount of abuse is unknown, for years, with a recent binge. Onset: The symptom(s)/episode began/occurred 6 day(s) ago. 20:58 I saw him 2 days ago for alcohol intoxication. Please see that note. He was not tl1 suicidal then. Today he was found again by co-workers at the [facility] intoxicated and incoherent. He was brought in by medics. He is unable to meaningfully contribute to his history. When I asked him why he drank so much, he said, "suicide". He was unable, or unwilling, at 1930, to speak any further.. Historical: - Allergies: No known drug Allergies; - Home Meds: 1. None - PMHx: None; - PSHx: None; - Tetanus: < 10 years. - Ebola Screening: : Patient negative for fever greater than or equal to 101.5 degrees Fahrenheit, and additional compatible Ebola Virus Disease symptoms. Patient denies exposure to infectious person. Patient denies travel to an Ebola-affected area in the 21 days before illness onset. No symptoms or risks identified at this time. . - Immunization history: Flu Vaccine < 1 year. - Social history: Smoking status: Patient uses tobacco products, current every day smoker. Patient uses alcohol patient/guardian reports chronic longstanding heavy alcohol consumption. patient/guardian reports recent binge of alcohol consumption. Patient/guardian denies using street drugs. ROS: 21:05 Psych: Positive for suicide gesture, suicidal ideation. tl1 21:05 Unable to obtain ROS due to being too inoxicated. Exam: 21:12 Head/Face: Normocephalic, atraumatic. tl1 21:12 Constitutional: The patient appears in no acute distress, non-toxic, well developed, well hydrated, well groomed, well nourished, listless, smells of alcohol. 21:12 Eyes: Exam is negative for acute changes, Pupils: equal, round, and reactive to light and accomodation. 21:12 ENT: Exam is negative for acute changes, Mouth: Oral mucosa: pink and intact, dry, Tongue: looks tobacco stained. 21:12 Neck: External neck: is normal, no acute changes. 21:12 Chest/axilla: Inspection: normal, Palpation: is normal, crepitus, is not appreciated, tenderness, is not appreciated. 21:12 Cardiovascular: Rate: normal. 21:12 Cardiovascular: Rhythm: regular, Pulses: no pulse deficits are appreciated. 21:12 Respiratory: the patient does not display signs of respiratory distress, Respirations: normal, Breath sounds: are normal. 21:12 Abdomen/GI: Inspection: abdomen appears normal, Palpation: abdomen is soft and non-tender. 21:12 Back: CVA tenderness, is absent. 21:12 Musculoskeletal/extremity: Exam is negative for acute changes. 21:12 Skin: Exam negative for acute changes. 21:12 Neuro: Orientation: unable to test, Mentation: slow to respond, somnolent, responsive to pain, Memory: unable to test, Cranial nerves: is grossly normal based on the patient's age, Motor: moves all fours, Gait: not tested. 21:12 Psych: Behavior/mood is pleasant, suicidal, depressed, Affect is flat, Patient having thoughts of suicide. Plan for suicide is Drink himself to . Vital Signs: 19:05 BP 116 / 81 (auto/); mk2 19:08 BP 116 / 81; Pulse 91; Resp 18; Temp 98.3; Pulse Ox 89% on R/A; Weight 69.4 kg; Height mk2 5 ft. 10 in. (177.80 cm); Pain 0/10; 19:27 Pulse 87 MON; Resp 13; Pulse Ox 99% ; mk2 20:06 BP 105 / 68 (auto/); mk2 20:07 Pulse 97 MON; Resp 14; Pulse Ox 98% ; mk2 20:57 Pulse 92 MON; Resp 15; Pulse Ox 98% ; 2 21:00 BP 98 / 61 (auto/); mk2 21:30 BP 103 / 70 (auto/); mk2 21:32 Pulse 82 MON; Resp 15; Pulse Ox 98% ; 2 22:00 BP 102 / 63 (auto/); 2 22:02 Pulse 86 MON; Resp 13; Pulse Ox 98% ; 2 23:00 BP 101 / 63 (auto/); mk2 23:02 Pulse 78 MON; Resp 14; Pulse Ox 98% ; mk2 23:27 Pulse 80 MON; Resp 12; Pulse Ox 99% ; 2 12/24 00:30 BP 90 / 54 (auto/); mk2 00:52 Pulse 81 MON; Resp 13; Pulse Ox 94% ; mk2 01:00 BP 102 / 56 (auto/); mk2 02:30 BP 112 / 69 (auto/); 2 02:32 Pulse 90 MON; Resp 15; Pulse Ox 97% ; mk2 03:00 BP 101 / 61 (auto/); mk2 03:02 Pulse 88 MON; Resp 12; Pulse Ox 92% ; mk2 04:30 BP 118 / 70 (auto/); mk2 04:32 Pulse 70 MON; Resp 12; Pulse Ox 99% ; mk2 05:00 BP 116 / 80 (auto/); 2 05:02 Pulse 96 MON; Resp 19; Pulse Ox 95% ; mk2 06:27 Pulse 91 MON; Resp 18; Pulse Ox 98% ; mk2 06:31 BP 110 / 56 (auto/); mk2 07:28 BP 114 / 70; Pulse 65; Resp 18; Pulse Ox 98% ; Pain 0/10; rs 05 19:08 Body Mass Index 21.95 (69.40 kg, 177.80 cm) mk2 MDM: 12/23 19:39 Patient medically screened. tl1 21:16 Differential diagnosis: depression, alcohol, other drug intoxication. Data reviewed: tl1 vital signs, nurses notes, old medical records, and as a result, I will. 12/24 07:00 ED course: At 0700, his BAL had dropped to 199. He was clinically sober with clear tl1 speech, A&O X 4, and clearly, no longer suicidal, and desperately wanting alcohol rehab. His WBC count is low, but I suspect it is related to his alcohol abuse. His WBC count was normal, just 2 days ago. He has no sequellae of sepsis or infection now: no fever, cough, ST, shaking chills or sweats, vomiting, diarrhea or urinary symptoms. I told him he needs to get his CBC rechecked in a few days.. 12/23 19:32 Order name: CBC AUTO DIF, MDIF/RMOR IF IND; Complete Time: 20:58 EDWY 12/23 19:41 Interpretation: WHITE BLOOD COUNT 2.4; HEMOGLOBIN 14.3; HEMATOCRIT 41.2; PLATELET COUNT tl1 183. 12/23 19:38 Order name: BASIC METABOLIC PANEL; Complete Time: 20:58 EDWY 12/23 19:41 Interpretation: SODIUM 145; POTASSIUM 4.3; CHLORIDE 101; CARBON DIOXIDE 25; GLUCOSE tl1 126; BLOOD UREA NITROGEN 6; CREATININE 0.7. 12/23 19:38 Order name: HEPATIC PANEL; Complete Time: 20:58 EDWY 12/23 19:41 Interpretation: ALT 120; ALBUMIN 4.3; ALKALINE PHOSPHATASE 101; AST 218; BILIRUBIN, tl1 TOTAL 0.6; BILIRUBIN, DIRECT 0.2; TOTAL PROTEIN 7.1. 12/23 19:38 Order name: LIPASE; Complete Time: 20:58 EDWY 12/23 19:41 Interpretation: Abnormal: LIPASE 337. 1 12/23 19:38 Order name: SALICYLATE; Complete Time: 20:58 EDW[facility] 12/23 19:41 Interpretation: Normal: SALICYLATE < 1.0. [facility] 12/23 19:38 Order name: ACETAMINOPHEN; Complete Time: 20:58 EDWY 12/23 19:41 Interpretation: Normal: ACETAMINOPHEN < 10.0. [facility] 12/23 19:48 Order name: ETHYL ALCOHOL; Complete Time: 20:58 EDMS 12/23 20:58 Interpretation: Abnormal: ETHYL ALCOHOL 504. [facility] 12/23 20:08 Order name: THYROID STIMULATING HORMONE; Complete Time: 20:58 EDMS 12/23 20:58 Interpretation: Normal: THYROID STIMULATING HORMONE 0.54. [facility] 12/23 21:54 Order name: UA W/ MICRO -CULTURE IF IND; Complete Time: 03:33 EDWY 12/23 21:54 Order name: URINE DRUG SCREEN, QUAL; Complete Time: 03:33 EDW[facility] 12/24 03:32 Interpretation: Normal. [facility] 12/24 06:46 Order name: ETHYL ALCOHOL; Complete Time: 15:09 EDWY 12/24 15:09 Interpretation: Abnormal: ETHYL ALCOHOL 199. [facility] 12/23 19:12 Order name: Continuous Cardiac Monitoring; Complete Time: 19:14 [facility] 12/23 19:12 Order name: I & O; Complete Time: 19:14 [facility] 12/23 19:12 Order name: Iv Saline Lock; Complete Time: 19:14 [facility] 12/23 19:12 Order name: NPO; Complete Time: 19:14 [facility] 12/23 19:12 Order name: Pulse Ox Continuous; Complete Time: 19:14 [facility] 12/23 19:12 Order name: Suicide Precautions; Complete Time: 19:14 [facility] Dispensed Medications: 12/23 19:43 Drug: NS 0.9% 1000 ml; Route: IV; Rate: 250 ml/hr; Site: right antecubital; 2 20:26 Drug: Pepcid 20 mg; Route: IVPB; Site: right antecubital; 2 21:26 Follow up: IV Status: Completed infusion; IV Intake: 100ml [facility] 20:26 Drug: Zofran 4 mg; Route: IVP; Infused Over: 2 mins; Site: right antecubital; 2 21:26 Follow up: Response: No adverse reaction [facility] 12/24 06:09 CANCELLED (Other Intervention Used): Ativan 1 mg IVP once 2 07:01 CANCELLED (Physician Discretion): Ativan 1 mg IVP once 2 07:02 CANCELLED (Duplicate Order): Ativan 2 mg IVP once 2 07:20 Drug: Ativan 2 mg; Route: IVP; Rate: 0.5 mg/min; Infused Over: 4 mins; Site: right rs antecubital; 07:35 Follow up: Response: No adverse reaction; Anxiety decreased rs Signatures: Shelly Chappell RN RN Valorie Noriega RN RN Ashley Mireles RN RN mk2 Fidel Villeda MD MD tl1
== END 2016-12-24 09:50 | disposition short-term general hospital (02) ==
LOC: ER 18:58 → EEVIPCON 18:58 → ER 12-24 09:50
DX: F10.229 Alcohol dependence with intoxication, unspecified (principal); R45.851 Suicidal ideations; E86.0 Dehydration; R74.8 Abnormal levels of other serum enzymes; D72.9 Disorder of white blood cells, unspecified; F17.210 Nicotine dependence, cigarettes, uncomplicated
CPT/HCPCS: 36415; 80048; 80076; 80305; 80307; 80320; 80329; 81001; 83690; 84443; 85025; 96365; 96375; 99285; A0425; A0427; A0429; J2060; J2405